=== PATIENT | male | born 1965 | race Caucasian/White ===

== ENCOUNTER → 2016-12-12 | Outpatient (CLI) | payer OTHER ==
--- NOTE | 2016-12-12 15:36 | XR ---
Abdomen HISTORY: Lower abdomen pain Frontal view of the abdomen submitted on 2 images No comparisons Lung bases are clear. There is no bowel obstruction or pneumoperitoneum. Probable vascular calcifica tions are present within the pelvis. IMPRESSION: Nonobstructive bowel gas pattern. Possible vascular calcifications within the pelvis, if distal right ureteral calcification is suspected, then alternate imaging may be of benefit.
[2016-12-12 16:01] LABS: ALT 46 U/L (21-72); AST 27 U/L (17-59); Alkaline Phosphatase 99 U/L (38-126); Anion Gap 11 mmol/L; Blood Urea Nitrogen 19 mg/dL (9-20); Calcium 10.2 mg/dL (8.4-10.2); Carbon Dioxide 28 mmol/L (22-30); Chloride 102 mmol/L (98-107); Cholesterol 205 mg/dL (<200); Glucose 81 mg/dL (74-99); HDL Cholesterol 51 mg/dL (40-60); Non-African American GFR(MDRD) >60 (>60 ml/min/1.73 sqM); Potassium 5.1 mmol/L (3.5-5.1); Sodium 141 mmol/L (137-145); Total Bilirubin 0.6 mg/dL (0.2-1.3); Total Protein 7.7 g/dL (6.3-8.2); Uric Acid 6.1 mg/dL (3.5-8.5)
[2016-12-12 16:29] LABS: Basophils # (A) 0.1 k/uL (0-0.2); Basophils % (A) 1 %; CH 31.4; CHCM 33.9; Eosinophils # (A) 0.2 k/uL (0-0.7); Eosinophils % (A) 2 %; HDW 2.74; HGB 14.2 gm/dL (13.0-17.5); Luc # (Auto) 0.19; Luc % (Auto) 2; Lymphocytes # (A) 2.1 k/uL (1.0-4.8); Lymphocytes % (A) 22 %; MCH 30.8 pg (25.0-35.0); MCHC 33.1 g/dL (31.0-37.0); Mean Platelet Volume 6.8; Monocytes # (A) 0.6 k/uL (0-1.0); Monocytes % (A) 7 %; Neutrophils # (A) 6.7 k/uL (1.3-7.7); Neutrophils % (A) 68 %; RBC 4.62 m/uL (4.30-5.90); RDW 13.3 % (11.5-15.5); WBC 9.9 k/uL (3.8-10.6); WBC (Perox) 9.93
== END | disposition home or self-care (01) ==
LOC: LABWHC1 14:22
PROVIDERS: ATTEND Family Medicine
DX: R10.30 Lower abdominal pain, unspecified (principal); G47.00 Insomnia, unspecified; I25.2 Old myocardial infarction
CPT/HCPCS: 36415; 74000; 80053; 80061; 84439; 84443; 84550; 85025

== ENCOUNTER 2017-01-03 09:25 | Day surgery (SDC) | payer OTHER ==
[2017-01-01 11:59] VITALS: BMI 35.9
[~2017-01-03 09:25] MED LIST: DEXAMETHASONE SOD PHOSPHATE 10 MG/ML 1 ML VIAL IV ONE; HEPARIN SODIUM,PORCINE 5,000 UNIT/ML 1 ML VIAL SQ ONE; LACTATED RINGERS 1,000 ML IV SCH; LIDOCAINE 1% 20 ML VIAL (10MG/ML) FOR IV START INTRADERMA PRN; ONDANSETRON 4 MG/2 ML VIAL IVP ONE; SCOPOLAMINE 1.5MG/72HR PATCH TRANSDERM ONE; ceFAZolin 2 GM in SODIUM CHLORIDE 0.9% 100 ML IVPB ONE
--- NOTE | 2017-01-03 11:14 | P.GSHP ---
History of Present Illness H&P Date: 01/03/17 Chief Complaint: incarcerated umbilical hernia this is a 51-year-old male referred from Dr. Juan Pelayo. Patient rents today for laparoscopic robotic-assisted repair of incarcerated umbilical hernia. He is developed a 5 cm mass at his umbilicus. There is incarcerated omentum wwithin the hernia.s Past Medical History Past Medical History: Coronary Artery Disease (CAD), GERD/Reflux, Hyperlipidemia , Hypertension, Myocardial Infarction ([place]) Additional Past Medical History / Comment(s): Hx. of Gout. Last Myocardial Infarction Date:: 2010 History of Any Multi-Drug Resistant Organisms: None Reported Past Surgical History: Appendectomy, Coronary Bypass/CABG, Heart Catheterization With Stent Past Anesthesia/Blood Transfusion Reactions: No Reported Reaction Additional Past Anesthesia/Blood Transfusion Reaction / Comment(s): Difficult to start IV @ times. Date of Last Stent Placement:: 2011 Smoking Status: Former smoker - Past Family History Mother Family Medical History: No Reported History Medications and Allergies Home Medications Medication Instructions Recorded Confirmed Type Allopurinol [Zyloprim] 300 mg PO DAILY 01/01/17 01/01/17 History Atorvastatin [Lipitor] 40 mg PO DAILY 01/01/17 01/01/17 History Clopidogrel [Plavix] 75 mg PO DAILY 01/01/17 01/01/17 History Colchicine [Mitigare] 0.6 mg PO DAILY PRN 01/01/17 01/01/17 History Fluticasone Nasal [place] [Flonase 1 spray EA NOSTRIL DAILY 01/01/17 01/01/17 History Nasal [place]] HYDROcodone/APAP 7.5-325MG [[place] 1 tab PO Q6HR PRN 01/01/17 01/01/17 History 7.5-325] Hydrochlorothiazide 25 mg PO DAILY 01/01/17 01/01/17 History Lisinopril [Zestril] 20 mg PO DAILY 01/01/17 01/01/17 History Loratadine 10 mg PO DAILY 01/01/17 01/01/17 History Metoprolol [place]/Hydrochlorothiaz 1 each PO DAILY 01/01/17 01/01/17 History [Metoprolol ER-Hctz 50-12.5 mg] Omeprazole [PriLOSEC] 20 mg PO AC-BRKFST 01/01/17 01/01/17 History amLODIPine [Norvasc] 10 mg PO DAILY 01/01/17 01/01/17 History Allergies Allergy/AdvReac Type Severity Reaction Status Date / Time No Known Allergies Allergy Verified 01/03/17 10:36 Surgical - Exam Vital Signs Temp Pulse Resp BP Pulse Ox 97.3 F L 86 16 152/95 96 01/03/17 10:42 01/03/17 10:42 01/03/17 10:42 01/03/17 10:42 01/03/17 10:42 - General well developed, no distress - Eyes PERRL - ENT normal pinna - Neck no masses - Respiratory normal expansion - Cardiovascular Rhythm: regular - Abdomen Abdomen: soft, non tender Hernia: umbilical (rincarcerated umbilical hernia) Assessment and Plan Plan: cursory umbilical hernia. We'll perform laparoscopic robotic system repair.
[2017-01-03] MEDS ORDERED: LIDOCAINE 1% INJ 10MG/ML (20 ML MDV) ONE (11:26)
[2017-01-03] MEDS ORDERED: ROCURONIUM BROMIDE 10 MG/ML 10 ML VIAL IV ONE (11:26)
[2017-01-03] MEDS ORDERED: GLYCOPYRROLATE 0.2 MG/ML 2 ML VIAL ONE (11:26)
[2017-01-03] MEDS ORDERED: SUCCINYLCHOLINE CHLORIDE 100 MG/5 ML SYR IV ONE (11:26)
[2017-01-03] MEDS ORDERED: fentaNYL (PF) 50 MCG/ML 2 ML AMP ONE (11:26)
[2017-01-03] MEDS ORDERED: NEOSTIGMINE 1 MG/ML 10 ML VIAL ONE (11:26)
[2017-01-03] MEDS ORDERED: MIDAZOLAM 2 MG/2 ML VIAL ONE (11:26)
[2017-01-03] MEDS ORDERED: PROPOFOL 10 MG/ML 20 ML VIAL IV ONE (11:26)
[2017-01-03] MEDS ORDERED: LABETALOL 5 MG/ML VIAL MDV ONE (11:26)
[2017-01-03] MEDS ORDERED: HYDROmorphone (PF) 1 MG/ML ONE (11:26)
[2017-01-03] MEDS ORDERED: BUPIVACAINE (PF) 0.25% 30 ML VIAL SQ ONE (12:10)
[2017-01-03] MEDS ORDERED: LIDOCAINE 2%-EPI 1:100,000 20 ML VIAL SQ ONE (12:10)
--- NOTE | 2017-01-03 12:48 | P.OP ---
Date of Procedure: 01/03/17 Preoperative Diagnosis: Incarcerated umbilical hernia Postoperative Diagnosis: Incarcerated umbilical hernia Procedure(s) Performed: Laparoscopic robotic-assisted repair of incarcerated umbilical hernia Partial greater omentectomy Anesthesia: DEBORAH Surgeon: Vini Fernandez Estimated Blood Loss (ml): 5 Pathology: other (Greater omentum) Condition: stable Disposition: PACU Description of Procedure: The patient's placed on the operative table in the supine position. He received general anesthesia. His abdomen was prepped and draped in usual sterile fashion. The patient had incarcerated umbilical hernia. The abdomen was entered in the left upper quadrant using a 5 mm blade less trocar under direct vision. The abdomen was insufflated. After adequate insufflation the laparoscope was placed back the pleural cavity. And then a 8 mm robotic trocar was placed in the left lower quadrant and a 12 mm trochars placed left lateral position and then the original 5 mm trocar was exchanged for an 8 mm robotic trocar. Patient's placed the left side up position and then docked the robot. Using the hook cautery the incarcerated greater omentum was dissected free from the hernia. The fascial defect was then closed with oh the lock suture. The fascia was then buttressed with ventral light ST mesh was secured with 2 OV lock suture. The patient was then undocked the robot. The omentum and the needles were removed withdrawn. The 12 mm trocar site was closed with 0 Ethibond suture. The skin was closed with interrupted 3-0 Monocryl suture. Dermabond dressing was applied. Patient was sent to recovery room stable condition.
[2017-01-03 12:58] VITALS: TEMP 96.8
[2017-01-03] MEDS: HYDROmorphone 0.5 MG/0.5 ML SYRINGE IVP PRN ×4 (13:09→13:55)
[2017-01-03] MEDS: LABETALOL 5 MG/ML VIAL MDV IV ONE ×2 (13:29→13:55)
[2017-01-03] MEDS ORDERED: KETOROLAC 30 MG/ML 1 ML VIAL IVP ONE (14:08)
[2017-01-03] MEDS: fentaNYL (PF) 50 MCG/ML 2 ML AMP IV ONE ×2 (14:08→14:34)
[2017-01-03] MEDS ORDERED: HYDROcodone/APAP 7.5-325MG 1 EACH TAB PO ONE (14:59)
[2017-01-03 15:26] VITALS: RESP 18
[2017-01-03 16:08] VITALS: BP 123/79; PULSE 62
== END 2017-01-03 16:45 | disposition home or self-care (01) ==
LOC: OR 09:25
PROVIDERS: ATTEND Surgery
DX: K42.0 Umbilical hernia with obstruction, without gangrene (principal); I25.10 Atherosclerotic heart disease of native coronary artery without angina pectoris; K21.9 Gastro-esophageal reflux disease without esophagitis; E78.5 Hyperlipidemia, unspecified; I10 Essential (primary) hypertension; I25.2 Old myocardial infarction; M10.9 Gout, unspecified; Z87.891 Personal history of nicotine dependence; Z95.1 Presence of aortocoronary bypass graft; Z95.5 Presence of coronary angioplasty implant and graft; Z79.02 Long term (current) use of antithrombotics/antiplatelets; Z79.51 Long term (current) use of inhaled steroids; Z79.899 Other long term (current) drug therapy
CPT/HCPCS: 49653; S2900; 88305

== ENCOUNTER → 2017-02-21 | Outpatient (CLI) | payer OTHER ==
--- NOTE | 2017-02-21 14:16 | XR ---
Lumbosacral spine HISTORY: Low back pain 5 views of the lumbar spine No comparisons Lumbar vertebral bodies show preserved height, alignment, and bone mineralization. There is no spondy lolysis. Multilevel spondylosis is present. Loss of disc height L4-5, sclerosis present in the assistant professor of communication ior elements. Dense vascular calcifications present within the aorta. IMPRESSION: Degenerative disc disease and facet arthropathy.
== END | disposition home or self-care (01) ==
LOC: RADXRMAIN 10:19
PROVIDERS: ATTEND Family Medicine
DX: M51.37 Other intervertebral disc degeneration, lumbosacral region (principal); M46.87 Other specified inflammatory spondylopathies, lumbosacral region
CPT/HCPCS: 72110

== ENCOUNTER 2021-03-06 15:19 | Emergency (ER) | payer OTHER ==
--- NOTE | 2021-03-06 15:56 | ED ---
General Adult HPI - General Chief complaint: Upper Respiratory Infection Stated complaint: Cough,Congestion Time Seen by Provider: 03/06/21 15:46 Source: patient, RN notes reviewed, old records reviewed Mode of arrival: ambulatory Limitations: no limitations - History of Present Illness Initial comments: 55-year-old male presenting for evaluation of cough over the past 5 days. He's had subjective fever and chills. He's had some nausea without vomiting. He has had diarrhea. He's had his coronavirus vaccines in July of this year. He has not had any known contact with coronavirus. He has mild dyspnea. No central chest pain. No abdominal pain. - Related Data Home Medications Medication Instructions Recorded Confirmed Allopurinol [Zyloprim] 300 mg PO DAILY 01/01/17 01/01/17 Atorvastatin [Lipitor] 40 mg PO DAILY 01/01/17 01/01/17 Clopidogrel [Plavix] 75 mg PO DAILY 01/01/17 01/01/17 Colchicine [Mitigare] 0.6 mg PO DAILY PRN 01/01/17 01/01/17 Fluticasone Nasal [place] [Flonase 1 spray EA NOSTRIL DAILY 01/01/17 01/01/17 Nasal [place]] HYDROcodone/APAP 7.5-325MG [[place] 1 tab PO Q6HR PRN 01/01/17 01/01/17 7.5-325] Loratadine 10 mg PO DAILY 01/01/17 01/01/17 Metoprolol [place]/Hydrochlorothiaz 1 each PO DAILY 01/01/17 01/01/17 [Metoprolol ER-Hctz 50-12.5 mg] Omeprazole [PriLOSEC] 20 mg PO AC-BRKFST 01/01/17 01/01/17 amLODIPine [Norvasc] 10 mg PO DAILY 01/01/17 01/01/17 hydroCHLOROthiazide 25 mg PO DAILY 01/01/17 01/01/17 lisinopriL [Zestril] 20 mg PO DAILY 01/01/17 01/01/17 Previous Rx's Medication Instructions Recorded Docusate [Colace] 100 mg PO BID #20 capsule 01/03/17 HYDROcodone/APAP 7.5-325MG [[place] 1 each PO Q4H PRN #60 tab 01/03/17 7.5] Allergies Allergy/AdvReac Type Severity Reaction Status Date / Time No Known Allergies Allergy Verified 03/06/21 15:38 Review of Systems ROS Statement: Those systems with pertinent positive or pertinent negative responses have been documented in the HPI. ROS Other: All systems not noted in ROS Statement are negative. Past Medical History Past Medical History: Coronary Artery Disease (CAD), GERD/Reflux, Hyperlipidemia, Hypertension, Myocardial Infarction ([place]) Additional Past Medical History / Comment(s): Hx. of Gout. Last Myocardial Infarction Date:: 2010 History of Any Multi-Drug Resistant Organisms: None Reported Past Surgical History: Appendectomy, Coronary Bypass/CABG, Heart Catheterization With Stent Past Anesthesia/Blood Transfusion Reactions: No Reported Reaction Additional Past Anesthesia/Blood Transfusion Reaction / Comment(s): Difficult to start IV @ times. Date of Last Stent Placement:: 2011 Past Psychological History: No Psychological Hx Reported Smoking Status: Former smoker Past Alcohol Use History: Daily Past Drug Use History: None Reported - Past Family History Mother Family Medical History: No Reported History General Exam Limitations: no limitations General appearance: alert, in no apparent distress Head exam: Present: atraumatic, normocephalic Eye exam: Present: normal appearance, PERRL ENT exam: Present: normal exam Neck exam: Present: normal inspection. Absent: tenderness, meningismus Respiratory exam: Present: normal lung sounds bilaterally. Absent: respiratory distress, wheezes, rales Cardiovascular Exam: Present: regular rate, normal rhythm GI/Abdominal exam: Present: soft. Absent: distended, tenderness, guarding Extremities exam: Present: normal inspection, normal capillary refill. Absent: pedal edema, calf tenderness Neurological exam: Present: alert, oriented X3, CN II-XII intact. Absent: motor sensory deficit Psychiatric exam: Present: normal affect, normal mood Skin exam: Present: warm, dry, intact. Absent: cyanosis, diaphoretic Course Vital Signs 03/06/21 15:35 Temperature 99.8 F H Pulse Rate 106 H Respiratory 20 Rate Blood Pressure 160/90 O2 Sat by Pulse 95 Oximetry Medical Decision Making - Medical Decision Making 55-year-old male with cough, mild dyspnea, patient's oxygenation is normal. No respiratory distress. He does test positive for coronavirus and does meet for monoclonal antibody treatment. This is given in the emergency department. He is given strict return parameters. He will quarantine. He will monitor his respiratory symptoms and return as needed. - Lab Data Lab Results 03/06/21 Range/Units 15:41 Coronavirus (PCR) Detected A (Not Detectd) Disposition Clinical Impression: COVID-19 Disposition: HOME SELF-CARE Condition: Fair Instructions (If sedation given, give patient instructions): Coronavirus Disease 2019 (COVID-19) Is patient prescribed a controlled substance at d/c from ED?: No Referrals: Jeff Pelayo MD [Primary Care Provider] - 1-2 days Time of Disposition: 16:08
[2021-03-06] MEDS ORDERED: SOTROVIMAB (EUA) 500 MG in SODIUM CHLORIDE 0.9% 100 ML IVPB ONE (16:15)
[2021-03-06] MEDS ORDERED: SODIUM CHLORIDE 0.9% 50 ML IVPB ONE (16:15)
--- NOTE | 2021-03-06 16:34 | XR ---
EXAMINATION TYPE: XR chest 1V portable DATE OF EXAM: 03/06/2021 CLINICAL HISTORY: cough. TECHNIQUE: Portable frontal view of the chest. COMPARISON: 12/02/2010 FINDINGS: Sternotomy wires. Redemonstrated cardiomegaly. Pulmonary vasculature is normal. Mild patch y airspace opacities over the lung bases. No pleural effusion. No pneumothorax seen. No acute displa michael osseous fracture. IMPRESSION: Mild patchy airspace opacities over the lung bases.
[2021-03-06 18:12] VITALS: RESP 18
[2021-03-06 18:14] VITALS: BP 177/90; PULSE 104; TEMP 98.8
== END 2021-03-06 18:14 | disposition home or self-care (01) ==
LOC: EC 15:19
DX: U07.1 COVID-19 (principal); I25.10 Atherosclerotic heart disease of native coronary artery without angina pectoris; I10 Essential (primary) hypertension; K21.9 Gastro-esophageal reflux disease without esophagitis; M10.9 Gout, unspecified; I25.2 Old myocardial infarction; E78.5 Hyperlipidemia, unspecified; Z87.891 Personal history of nicotine dependence; Z79.899 Other long term (current) drug therapy; Z79.02 Long term (current) use of antithrombotics/antiplatelets
CPT/HCPCS: 87635; 71045; 99283; Q0247

== ENCOUNTER 2021-11-08 08:36 | Day surgery (SDC) | payer OTHER ==
[2021-11-04 10:00] VITALS: BMI 40.8
[~2021-11-08 08:36] MED LIST changes: -DEXAMETHASONE SOD PHOSPHATE 10 MG/ML 1 ML VIAL IV ONE; -HEPARIN SODIUM,PORCINE 5,000 UNIT/ML 1 ML VIAL SQ ONE; +LIDOCAINE 1% (10MG/ML) FOR IV START INTRADERMA PRN; -LIDOCAINE 1% 20 ML VIAL (10MG/ML) FOR IV START INTRADERMA PRN; -ONDANSETRON 4 MG/2 ML VIAL IVP ONE; -SCOPOLAMINE 1.5MG/72HR PATCH TRANSDERM ONE; -ceFAZolin 2 GM in SODIUM CHLORIDE 0.9% 100 ML IVPB ONE
[2021-11-08 09:03] VITALS: RESP 16; TEMP 97
[2021-11-08] MEDS ORDERED: PROPOFOL 10 MG/ML 20 ML VIAL IV ONE (09:31)
--- NOTE | 2021-11-08 09:34 | P.GSHP ---
History of Present Illness H&P Date: 11/08/21 Chief Complaint: Rectal bleeding 56-year-old male here today for colonoscopy. Patient has had intermittent rectal bleeding for years. No bowel complaints otherwise. No family history of colon cancer. He has not had a colonoscopy before. Past Medical History Past Medical History: Coronary Artery Disease (CAD), GERD/Reflux, Hyperlipidemia, Hypertension, Myocardial Infarction ([place]) Additional Past Medical History / Comment(s): states "having a little bit of bleeding on outside of stools.Hx of Gout,Covid infection Mar 2021-received monoclonal antibodied Last Myocardial Infarction Date:: 2010 History of Any Multi-Drug Resistant Organisms: None Reported Past Surgical History: Appendectomy, Coronary Bypass/CABG, Heart Catheterization With Stent Additional Past Surgical History / Comment(s): CABG-Oct 31, 2012 Past Anesthesia/Blood Transfusion Reactions: No Reported Reaction Additional Past Anesthesia/Blood Transfusion Reaction / Comment(s): Difficult to start IV @ times,no hx blood transfusion Date of Last Stent Placement:: 2011 Smoking Status: Former smoker - Past Family History Mother Family Medical History: No Reported History Medications and Allergies Home Medications Medication Instructions Recorded Confirmed Type Atorvastatin [Lipitor] 40 mg PO DAILY 01/01/17 11/04/21 History Loratadine 10 mg PO DAILY 01/01/17 11/08/21 History Omeprazole [PriLOSEC] 20 mg PO BID PRN 01/01/17 11/04/21 History amLODIPine [Norvasc] 10 mg PO QAM 01/01/17 11/04/21 History lisinopriL [Zestril] 20 mg PO QAM 01/01/17 11/04/21 History Metoprolol Succinate (ER) [Toprol 50 mg PO QAM 03/06/21 11/08/21 History Xl] Ibuprofen [Motrin] 200 mg PO Q6HR PRN 11/04/21 11/08/21 History Multivitamins, Thera [Multivitamin 1 tab PO DAILY 11/04/21 11/04/21 History (formulary)] allopurinoL [Zyloprim] 300 mg PO DAILY 11/08/21 11/08/21 History Allergies Allergy/AdvReac Type Severity Reaction Status Date / Time No Known Allergies Allergy Verified 11/08/21 08:54 Surgical - Exam Vital Signs Temp Pulse Resp BP Pulse Ox 97.0 F L 67 16 166/78 97 11/08/21 09:02 11/08/21 09:02 11/08/21 09:02 11/08/21 09:02 11/08/21 09:02 Physical exam: General: Well-developed, well-nourished HEENT: Normocephalic, sclerae nonicteric Abdomen: Nontender, nondistended Extremities: No edema Neuro: Alert and oriented Assessment and Plan (1) Rectal bleeding Narrative/Plan: Will proceed with colonoscopy at this time. Current Visit: Yes Status: Acute Code(s): K62.5 - HEMORRHAGE OF ANUS AND RECTUM SNOMED Code(s): 14838659
--- NOTE | 2021-11-08 09:55 | P.PCN ---
Date of Procedure: 11/08/21 Procedure(s) Performed: PREOPERATIVE DIAGNOSIS: Rectal bleeding POSTOPERATIVE DIAGNOSIS: Sigmoid colon polyp 2, mild pruritus ani PROCEDURE: Colonoscopy with snare polypectomy ANESTHESIA: MAC SURGEON: Sunny Isaac M.D. SPECIMENS: Polyps and descending colon ENDOSCOPIC PROCEDURE: The patient was placed on the endoscopy table in the left decubitus position. The Olympus colonoscope was inserted into the anus and passed under direct visualization to the base of the cecum. The appendiceal orifice was visualized. From that point the scope was slowly withdrawn inspecting all surfaces carefully. There were no neoplastic inflammatory or polypoid lesions throughout the cecum, ascending, transverse, and descending colon. In the sigmoid colon there was 2 small polyps removed using the snare with cautery technique. The remainder of the sigmoid and rectum appeared normal. There was no visible diverticulosis. Retroflexion at the anus was normal. Digital rectal examination was normal but the patient was noted to have mild pruritus ani. The patient was taken to the recovery room in stable condi tion per anesthesia guidelines. RECOMMENDATIONS: Resume diet. Will contact patient with pathology findings to determine the timing of the next colonoscopy. Likely 5-10 years.
[2021-11-08 10:16] VITALS: BP 127/78; PULSE 72
== END 2021-11-08 10:34 | disposition home or self-care (01) ==
LOC: ORWHC2ENDO 08:36
PROVIDERS: ATTEND Surgery
DX: D12.5 Benign neoplasm of sigmoid colon (principal); L29.0 Pruritus ani; I25.10 Atherosclerotic heart disease of native coronary artery without angina pectoris; K21.9 Gastro-esophageal reflux disease without esophagitis; E78.5 Hyperlipidemia, unspecified; I10 Essential (primary) hypertension; M10.9 Gout, unspecified; I25.2 Old myocardial infarction; Z86.16 Personal history of COVID-19; Z90.49 Acquired absence of other specified parts of digestive tract; Z95.5 Presence of coronary angioplasty implant and graft; Z87.891 Personal history of nicotine dependence; Z79.899 Other long term (current) drug therapy
CPT/HCPCS: 88305; 45385; J2704